=== PATIENT | female | born 1975 | race Caucasian/White ===

== ENCOUNTER 2017-05-28 19:53 | Emergency (ER) | payer OTHER ==
[~2017-05-28] VITALS: Ht 162.6 cm; Wt 61.7 kg
[2017-05-28 19:59] VITALS: BP 139/79; Ht 162.6 cm; Wt 61.7 kg
== END 2017-05-28 21:56 | disposition home or self-care (01) ==
LOC: ED 19:53
DX: J45.901 Unspecified asthma with (acute) exacerbation (principal)
CPT/HCPCS: J1885; J7512; J7620

== ENCOUNTER 2018-10-08 18:20 | Emergency (ER) | payer OTHER ==
[~2018-10-08] VITALS: Ht 157.5 cm; Wt 72.1 kg
[2018-10-08 18:38] VITALS: Ht 157.5 cm; Wt 72.1 kg
[2018-10-08 20:50] VITALS: BP 134/80
== END 2018-10-08 20:50 | disposition home or self-care (01) ==
LOC: ED 18:20
DX: J45.901 Unspecified asthma with (acute) exacerbation (principal)
CPT/HCPCS: J7512; J7613; J7644

== ENCOUNTER 2020-02-07 21:55 | Emergency (ER) | payer OTHER, SELFPAY ==
[~2020-02-07] VITALS: Ht 157.5 cm; Wt 68.0 kg
[2020-02-07 21:57] VITALS: Ht 157.5 cm; Wt 68.0 kg
[2020-02-07 23:41] VITALS: BP 144/81
== END 2020-02-07 23:41 | disposition home or self-care (01) ==
LOC: ED 21:55
DX: J45.901 Unspecified asthma with (acute) exacerbation (principal)

== ENCOUNTER 2020-02-08 01:27 | Emergency (ER) | payer OTHER, SELFPAY ==
[~2020-02-08] VITALS: Ht 157.5 cm; Wt 68.0 kg
[2020-02-08 01:29] VITALS: Ht 157.5 cm; Wt 68.0 kg
[2020-02-08 04:23] VITALS: BP 123/73
== END 2020-02-08 04:24 | disposition home or self-care (01) ==
LOC: ED 01:27
DX: J45.901 Unspecified asthma with (acute) exacerbation (principal)